=== PATIENT | female | born 1965 | race Caucasian/White ===

== ENCOUNTER 2021-03-26 14:16 | Emergency (ER) | payer MEDICARE ==
[~2021-03-26] VITALS: Ht 162.6 cm; Wt 68.1 kg
[~2021-03-26 14:16] MED LIST: (None)250 MG OR; ASPIRIN 81 LOW81 MG; BACLOFEN20 MG OR; BUPROPION100 MG PO; CLONAZEP ODT1 MG OR; CYMBALTA20 MG PO; CYMBALTA60 MG OR; DYAZIDE1 CAP OR; GABAPENTIN600 MG OR; LORTAB5 OR; LOVASTATIN10 M1 PO; ONDANSETRON4 MG PO; OXYCODONE10 M1 PO; PILOCARPINE5 MG PO; PREGABALIN25 MG; PREVACID30 M2 OR; PROTONIX20 M1 PO; RIZATRIPTAN BENZ5 M1 PO; TIZANIDINE HCL2 MG PO; XIFAXAN200 MG OR
[2021-03-26 15:38] LABS: HEMATOCRIT 32.9 % (37.0-47.0); HEMOGLOBIN 9.7 g/dl (12.0-16.0); IMMATURE GRANULOCYTES 0.4 % (0.0-5.0); MEAN CELL VOLUME 94.5 fL CALC (80.0-100.0); MEAN CORPUSCULAR HGB 27.9 pG CALC (26.0-32.0); MEAN CORPUSCULAR HGB CONC 29.5 g/dL CAL (32.0-36.0); NEUT# 3.48 thou/uL (2.00-7.15); RED BLOOD COUNT 3.48 mill/uL (4.20-5.60); RED CELL DISTRI WIDTH 18.7 % (11.5-15.5)
[2021-03-26 15:56] LABS: ALBUMIN 3.6 g/dL (3.2-5.0); ALKALINE PHOSPHATASE 112 u/l (38-126); AMYLASE 46 u/l (30-110); ANION GAP 12 (6-22 (CALC)); BUN 9 mg/dL (7-17); BUN/CREATININE RATIO 16 (12-20 (CALC)); CARBON DIOXIDE 23 mmol/l (22-30); CHLORIDE 112 mmol/l (95-108); CREATININE 0.6 mg/dL (0.5-1.0); GFR > 60 ML/MIN (>=60 (CALC)); GFR FOR AFR.AMER. > 60 ML/MIN (>=60 (CALC)); LIPASE 121 u/l (23-300); POTASSIUM 3.9 mmol/l (3.5-5.1); SGOT/AST 21 u/l (14-36); SODIUM 143 mmol/l (137-146); TOTAL PROTEIN 6.6 g/dL (6.3-8.2)
[2021-03-26 16:00] LABS: ACT PARTIAL THROMBO TIME 25.8 SECONDS (20.0-32.5); PROTHROMBIN TIME 10.2 SECONDS (9.0-12.5)
[2021-03-26 17:46] VITALS: BP 143/69
[2021-03-26 17:49] LABS: URINE BILIRUBIN - DIPSTICK NEGATIVE (NEGATIVE); URINE BLOOD DIPSTICK NEGATIVE (NEGATIVE); URINE COLOR YELLOW; URINE GLUCOSE - DIPSTICK NEGATIVE (NEGATIVE); URINE KETONE NEGATIVE (NEGATIVE); URINE LEUK ESTERASE NEGATIVE (NEGATIVE); URINE PROTEIN - DIPSTICK NEGATIVE (NEG-TRACE); URINE UROBILINOGEN - DIPSTICK 0.2 E.U./dL (0.2)
[2021-03-26 17:54] LABS: URINE NITRITE - DIPSTICK NEGATIVE (Negative)
[2021-04-02] MEDS ORDERED: LASIX 40 MG TAB40 MG PO (14:30)
[2021-04-23] MEDS ORDERED: PERCOCET1 TA4 PO ×2 (14:51→14:52)
[2021-04-24] MEDS ORDERED: CLONAZEPAM1 M1 PO (09:20)
[2021-04-24] MEDS ORDERED: RIZATRIPTAN BEN10 M1 PO (09:23)
[2021-04-24] MEDS ORDERED: DULOXETINE HCL60 MG PO (09:53)
[2021-04-24] MEDS ORDERED: TOPIRAMATE50 MG PO (09:54)
[2021-04-24] MEDS ORDERED: MELATONIN5 MG PO (10:00)
[2021-04-24] MEDS ORDERED: VITAMIN D31000 UNI1 PO (10:02)
[2021-04-24] MEDS ORDERED: ACIDOPHILUS PR100 MG PO (10:03)
[2021-04-24] MEDS ORDERED: BL IBUPROFEN200 MG PO (10:12)
[2021-04-24] MEDS ORDERED: TYLENOL325 M2 PO (10:12)
== END 2021-03-26 18:03 | disposition home or self-care (01) ==
LOC: ED 14:16
DX: K43.2 Incisional hernia without obstruction or gangrene (principal); G89.29 Other chronic pain; M79.7 Fibromyalgia; F32.9 Major depressive disorder, single episode, unspecified; F17.210 Nicotine dependence, cigarettes, uncomplicated; Z95.828 Presence of other vascular implants and grafts; Z20.822 Contact with and (suspected) exposure to COVID-19

== ENCOUNTER 2021-04-15 18:02 | Emergency (ER) | payer MEDICARE ==
[~2021-04-15] VITALS: Ht 162.6 cm; Wt 81.0 kg
[~2021-04-15 18:02] MED LIST changes: +LASIX 40 MG TAB40 MG PO
[2021-04-15] MEDS ORDERED: HYDROCO/APAP1 TA9 PO (19:59)
[2021-04-15] MEDS ORDERED: FLEXERIL5 M1 PO (20:01)
[2021-04-15] MEDS ORDERED: MEDDOSEPAK PO (20:01)
[2021-04-15 20:22] VITALS: BP 118/63
[2021-04-23] MEDS ORDERED: PERCOCET1 TA4 PO ×2 (14:51→14:52)
[2021-04-24] MEDS ORDERED: CLONAZEPAM1 M1 PO (09:20)
[2021-04-24] MEDS ORDERED: RIZATRIPTAN BEN10 M1 PO (09:23)
[2021-04-24] MEDS ORDERED: DULOXETINE HCL60 MG PO (09:53)
[2021-04-24] MEDS ORDERED: TOPIRAMATE50 MG PO (09:54)
[2021-04-24] MEDS ORDERED: MELATONIN5 MG PO (10:00)
[2021-04-24] MEDS ORDERED: VITAMIN D31000 UNI1 PO (10:02)
[2021-04-24] MEDS ORDERED: ACIDOPHILUS PR100 MG PO (10:03)
[2021-04-24] MEDS ORDERED: TYLENOL325 M2 PO (10:12)
[2021-04-24] MEDS ORDERED: BL IBUPROFEN200 MG PO (10:12)
== END 2021-04-15 20:24 | disposition home or self-care (01) ==
LOC: ED 18:02
DX: M54.5 Low back pain (principal); G89.29 Other chronic pain; F32.9 Major depressive disorder, single episode, unspecified; F17.210 Nicotine dependence, cigarettes, uncomplicated

== ENCOUNTER 2021-06-04 07:14 | Inpatient (IN) | payer MEDICARE ==
[2021-06-04] VITALS (9 sets, daily range): BP systolic 115–142; BP diastolic 59–80
[~2021-06-04] VITALS: Ht 162.6 cm; Wt 76.0 kg
[~2021-06-04 07:14] MED LIST changes: +ACIDOPHILUS PR100 MG PO; +BL IBUPROFEN200 MG PO; +CLONAZEPAM1 M1 PO; +DULOXETINE HCL60 MG PO; +FLEXERIL5 M1 PO; +HYDROCO/APAP1 TA9 PO; +MAXALT10 MG PO; +MEDDOSEPAK PO; +MELATONIN5 MG PO; -OXYCODONE10 M1 PO; +PERCOCET 10/31 COMBO PO; +PERCOCET1 TA4 PO; +PREGABALIN200 MG PO; -PREGABALIN25 MG; +RIZATRIPTAN BEN10 M1 PO; -RIZATRIPTAN BENZ5 M1 PO; +TOPIRAMATE50 MG PO; +TYLENOL325 M2 PO; +VITAMIN D31000 UNI1 PO
--- NOTE | 2021-06-04 12:06 | NUR ---
RECEIVED PATIENT AT THIS TIME FROM PACU NURSE JOY UMANA. REPORT GIVEN AT THIS TIME. PATIENT ALERT AND ORIENTED AT THIS TIME BUT STATES SHE IS HAVING SOME PAIN. PATIENT IS ALERT AND ORIENTED AND ABLE TO ANSWER QUESTIONS AT THIS TIME. PATIENT DOCTOR PODIATRIC MEDICINE DONE SEE INTERVENTIONS. PATEINT PRESENTS WITH SURGICAL DRESSING ON ABDOMINAL AREA WITH THREE LAP SITES AND LEFT SIDE INCISION THAT HAS JOSEPH (PER SURGICAL NURSE) ALL DRESSINGS ARE DRY AND INTACT. THERE IS A VISIABLE NOTED BERT DRAIN ON LEFT SIDE WITH BLOODY DRAINAGE AT THIS TIME. PATIENT STATED HER PAIN IS A 5 AT THIS TIME AND RN JOY STATED SHE WAS MEDICATED PREVIOUSLY BEFORE COMING TO FLOOR. PATIENT LUNGS ARE CLEAR AND PATIENT HAS 02 ON AT 4L N/C AT THIS TIME. PATIENT HAS UNACESSED PORT NOTED IN UPPER RIGHT CHEST WALL. CARLY DOES PRESENT WITH A #20 GAUGE IV IN LEFT FOREARM. PATEINT ALSO PRESENTS WITH 16 HUNGARIAN MARCOS CATH THAT WAS INSERTED BY SURGICAL TEAM DURING SURGERY. PATIENT WAS SET UP WITH SCD ON AT THIS TIME. PATIENT ADVISED TO CALL FOR ASSISTANCE. SIDERAILS ARE UP X 2 CALL LIGHT IS WITHIN REACH. PATIENT WILL CONTINUE TO BE MONITORED.
[2021-06-04] MEDS ORDERED: ASPIRIN81 MG PO (13:06)
--- NOTE | 2021-06-04 13:08 | NUR ---
PATIENT MEDICATED AT THIS TIME WITH PEROCET 5/325MG PO FOR PAIN LEVEL OF 3 AND WAS ALSO GIVEN SCHEDULED TORADOL 15MG IV AT THIS TIME. WILL CONTINUE TO MONITOR. SIDERAILS ARE UP CALL LIGHT WITHIN REACH.
--- NOTE | 2021-06-04 14:00 | NUR ---
PATIENT GIVEN EDUCATION ON THE USE OF AN INCENTIVE SPIROMETER AT THIS TIME. PATIENT STATED THAT SHE HAS USED ONE IN THE PAST AND DID DEMONSTRATE PROPER USE AT THIS TIME.
--- NOTE | 2021-06-04 16:00 | NUR ---
PATIENT RESTING IN BED AT THIS TIME. PATIENT'S ABDOMINAL BINDER REMOVED TO CHECK SURGERY SITES 3 LAP SITES ARE DRY AND INTACT AND LEFT SIDE INSCISIONAL DRESSING IS DRY AND INTACT. BERT DRAIN CONTINUE TO DRAIN BLOODY DRAINAGE AT THIS TIME. PATIENT STATES PAIN IS CONTROLLED CURRENTLY AND IS A "2" ON THE PAIN SCALE OF 0-10. BINDER PLACED BACK ON. PATIENT HAS BEEN ABLE TO EAT A SNACK AND HOLD WATER DOWN WITHOUT FEELING NAUSEATED OR VOMITTING AT THIS TIME. SIDERAILS ARE UP CALL LIGHT WITHIN REACH.
--- NOTE | 2021-06-04 16:53 | NUR ---
PATIENT COMPLAIN THAT PAIN IS STARTING TO COME BACK IN ABDOMINAL AREA PATIENT MEDICATED WITH OXYCODONE 5/325MG AT THIS TIME FOR A STATED PAIN LEVEL OF "3". BERT DRAIN ALSO DRAINED AT THIS TIME AND 15ML OF BLOODY DRAINAGE REMOVED AT THIS TIME. DRESSINGS ARE STILL INTACT AND BINDER INPLACE AND SIDERAILS ARE UP AND CALL LIGHT IS WITHIN REACH.
--- NOTE | 2021-06-04 17:55 | NUR ---
PATIENT UP AT BEDSIDE EATING DINNER AT THIS TIME. PATIENT BEDSIDERAILS ARE UP AND CALL LIGHT IS WITHIN REACH.
--- NOTE | 2021-06-04 18:30 | NUR ---
ASSITED PATIENT BACK DOWN IN BED AT THIS TIME. ICE/PACK GIVEN TO PATIENT AT THIS TIME FOR COMFORT ON LEFT SIDE OF ABDOMINAL WALL AREA. PATIENT STATES "THAT FEELS REALLY GOOD". PATIENT ATE 75% OF HER REGULAR DIET AT THIS TIME. AND IS NOW RESTING. SIDERAILS ARE UP CALL LIGHT WITHIN REACH.
--- NOTE | 2021-06-04 19:30 | NUR ---
PATIENT IS AWAKE, ALERT AND ORIENTED, SUPINE, C/O ABD PAIN 9/10 AT THIS TIME. RESPIRATIONS EVEN/UNLABORED, HR REG, MULTIPLE DRESSINGS TO ABD CDI AND NOT TO BE REMOVED/CHANGED UNTIL S/P DAY 2. BERT DRAIN TO LLQ DRAINING SANGUENOUS FLUID TO BULB SUCTION. MARCOS CATHETER DRAINING CLEAR YELLOW URINE TO GRAVITY. SKIN WARM AND DRY. BS+. ASSESSMENT COMPLETED AND CHARTED. BED IN LOW POSITION. CALL LIGHT WITHIN REACH.
--- NOTE | 2021-06-04 19:50 | NUR ---
RECEIVED REPORT FROM NOE UMANA.
--- NOTE | 2021-06-04 21:19 | NUR ---
PT NOW COMPLAINING OF PALPITATIONS. EDUCATIONAL COORDINATOR TO DO EKG.
--- NOTE | 2021-06-04 22:15 | NUR ---
PATIENT MEDICATED WITH DILAUDID 1MG IV FOR ABD PAIN 04/09. RESTING QUIETLY SUPINE. BED IN LOW POSITION. CALL LIGHT WITHIN REACH.
--- NOTE | 2021-06-04 23:58 | NUR ---
MIDNIGHT MEDICATIONS GIVEN. PAIN 6/10 RELIEVED TO 5/10 FROM TORADOL IV.
--- NOTE | 2021-06-05 03:55 | NUR ---
PATIENT C/O NAUSEA, ZOFRAN 4MG IV ADMINISTERED.
[2021-06-05 04:00] VITALS: BP 115/73
[2021-06-05 05:51] LABS: MEAN CELL VOLUME 95.3 fL CALC (80.0-100.0); MEAN CORPUSCULAR HGB 28.3 pG CALC (26.0-32.0); MEAN CORPUSCULAR HGB CONC 29.7 g/dL CAL (32.0-36.0); RED BLOOD COUNT 2.58 mill/uL (4.20-5.60); RED CELL DISTRI WIDTH 18.6 % (11.5-15.5)
[2021-06-05 05:53] LABS: HEMATOCRIT 24.6 % (37.0-47.0); HEMOGLOBIN 7.3 g/dl (12.0-16.0)
[2021-06-05 06:06] LABS: ANION GAP 10 (6-22 (CALC)); BUN 19 mg/dL (7-17); BUN/CREATININE RATIO 37 (12-20 (CALC)); CARBON DIOXIDE 22 mmol/l (22-30); CHLORIDE 111 mmol/l (95-108); CREATININE 0.5 mg/dL (0.5-1.0); GFR > 60 ML/MIN (>=60 (CALC)); GFR FOR AFR.AMER. > 60 ML/MIN (>=60 (CALC)); MAGNESIUM 1.7 mg/dL (1.6-2.3); SODIUM 139 mmol/l (137-146)
--- NOTE | 2021-06-05 06:46 | NUR ---
PATIENT WAS UP AND AMBULATED APPROXIMATELY 50 FEET IN THE HALLWAY WITH THIS NURSE. TOLERATED WELL. DEFINATE INCREASED PAIN FROM AMBULATING.
[2021-06-05 08:18] VITALS: BP 115/76
--- NOTE | 2021-06-05 08:18 | NUR ---
PT LAYING IN BED. A&O X4. PT C/O OF PAIN 9/10 SHARP IN DESCRIPTION. CLEAR BREATH SOUNDS UPON AUSCULTATION. ACTIVE BOWEL SOUNDS X4 QUADRANTS. ABD BINDER IN PLACE, X4 LAPAROSCOPIC INCISIONS WITH DRESSINGS CDI; OPEN INCISON TO LT FLANK WITH DRESSING CDI. DRESSING TO BE CHANGED ON POD DAY #2. BERT DRAIN IN PLACE; HEALTHY AND PATENT WITH SANGUINEOUS DRAINAGE NOTED; OUTPUT THIS AM 7CC. MARCOS CATHTER DRAINING VIA GRAVITY WITH CLEAR YELLOW URINE NOTED IN COLLECTION BAG. TRACE EDEMA NOTED TO BLE, WEAK PEDAL PULSES. BILATERAL SCDS IN PLACE. #20G LFA HEALTHY AND PATENT INFUSING IVF PER MAR ORDER. NO OTHER NEEDS AT THIS TIME. ASSESSMENT COMPLETED. DISCUSSED POC. CALL LIGHT WITHIN REACH.
--- NOTE | 2021-06-05 10:53 | NUR ---
DR SAEZ AND Jean-Paul MANZANO MOTION PICTURE PROJECTIONIST APPRENTICE AT BEDSIDE DISCUSSING POC
--- NOTE | 2021-06-05 11:18 | NUR ---
Patient participated with PT intervention today. Patient carried out log rolling supine to sitting bed mobility ADLs and sit to stand push off ADLs with 1 to 3 reps with constant verbal and tactile cuing to help decrease trick movements and fall risks (patient required significant tactile cuing to help carry out functional weight bearing ADLs). Patient also did B LE seated AROM exercises doing hip flexion, hip adduction, hip abduction, hamstring curls, knee extension, and ankle pumps for 10 reps x 2 sets with occasional verbal and tactile cuing to help decrease trick movements and fall risks as patient prepares for discharge from hospital and go home.
--- NOTE | 2021-06-05 11:45 | NUR ---
PATIENTS MARCOS REMOVED 9CC OF SALINE REMOVED FROM BALLOON. UPON REMOVAL MARCOS/ BALLOON INTACT. 450 CC OF CLEAR YELLOW URINE EMPTIED PRIOR TO REMOVAL. PATIENT TOLERATED WELL. REPORTS PAIN 05/10, SCHEDULED TORADOL GIVEN IVP. NO OTHER NEEDS AT THIS TIME. HELPED REPOSTION PATIENT IN BED. CALL LIGHT WITHIN REACH.
--- NOTE | 2021-06-05 12:59 | NUR ---
ORDER OBTAINED TO CHANGE PILOCARMINE ORDER TO [address] BELLE- PT REPORTS THAT WAS "HER DOSAGE BEFORE". ORDER WRITTEN AND FAXED TO PHARMACY.
--- NOTE | 2021-06-05 15:19 | NUR ---
PT AMBULATING HALLWAY WITH Susana MERAZ RN AT SIDE. PT TOLERATING WELL.
[2021-06-05 16:00] VITALS: BP 104/66
--- NOTE | 2021-06-05 16:00 | NUR ---
PT RESTING IN BED. PT RATES PAIN 8-10, PERCOCET WAS GIVEN PO. NO OTHER NEEDS AT THIS TIME. CALL LIGHT LEFT WITHIN REACH.
--- NOTE | 2021-06-05 18:53 | NUR ---
REPORT RECEIVED BY Wendy FLORENTINO RN
--- NOTE | 2021-06-05 19:00 | NUR ---
PATIENT ALERT AND ORIENTED X3. REGULAR HEART BEAT. ACTIVE BOWEL SOUNDS,LAS BOM 10/4 NO PROBLEM ON URINATION. BILATERAL LOWER TRACE EDEMA. #20 LFA INFUSING NORMAL SALINE AT 100ML/HR.PATIENT HAS ABDOMINAL BINDER IN PLACE, WITH BERT DRAIN MINIMAL DRAINAGE. PATIENT AMBULATED IN ROOM, TOLERATED WELL. SALINE LOCK. CARE PLAN REVIEWED, CALL LIGHT AND BEDSIDE TABLE WITHIN REACH.
[2021-06-05 20:00] VITALS: BP 106/61
--- NOTE | 2021-06-05 20:16 | NUR ---
PATIENT COMPLAIONIGN OF MILD PAIN, 3/10 ADMINISTERED PER EMAR.
--- NOTE | 2021-06-05 20:50 | NUR ---
PATIENT STATES SHE HAS HAD A FEVER ALL DAY AND NO ONE HAS DONE ANYTHING ABOUT IT. EXPLAINED TO PATIENT SHE IS GETTING ACETAMINIPHEN ALREADY FOR PAIN, PATIENT STATES EVERYTIME SHE SAYS SHE HAS A FEVER, HER FEVER "MAGICALLY" DISAPPEARS WHEN WE ARE IN THERE. SHE SAID SHE WOULD HAVE A FEVER SHOW UP ON THE THERMOMETER IF WE STOPPED GIVING HER THE PERCOCET. ASKED PATIENT IF SHE WOULD LIKE TO STOP RECEIVING PERCOCET AND SHE SAID "NO" AND TO STOP YELLING ADVISED PATIENT WRITTER WAS NOT YELLING, BUT SIMPLY TRYING TO UNDERSTAND, PATIENT COVERED HER HEAD AND DID NOT ANSWER ANY FURTHER QUESTIONS. PATIENT IS ALSO EXPERIENCING UNRIELIEVD PAIN INCREASING TO A 9/10 NOW HER HEAD AND BACK HURT TOO. MEEDICATED PER EMAR.
--- NOTE | 2021-06-05 21:37 | NUR ---
PATIENT RATES [AIN A 03/09 AT THIS TIME, RESTINF COMDFRTABLY WATCHING TV. MEDICATED PER EMAR, PT DECLINED MELATONIN, CLONAZAPAM, SATATES SHE TAKLES THEM LATER AT HOME AND SH WILL LET ME KNOW THE TIME SHE WANTS THEM. DECLINED PILOCARPINE AT THIS TIME, STATES SHE TAKES IT PRN AT HOME. PT REMOVED ABDOMINAL BINDER AND WILL CALL WHEN SHE IS READY TO BE ASSITED WITH ITS RE APPLICATION.
[2021-06-06] VITALS (12 sets, daily range): BP systolic 108–153; BP diastolic 54–81
--- NOTE | 2021-06-06 00:04 | NUR ---
PATIENT REQUESTING PRIOR HELD MEDIATIONS. PATIENT UP TO THE RESTROOM AT THIS TIME ASSITED BY WRITTER. PATIENT AMBULATED WITH ASSIT OF ONE, STEADY GAIT, ADAPTED EXIXTING TOILET WITH RAISED SEAT FOR ADDED SUPPORT. 30ML DRAINED FROM BERT DRAIN AT THIS TIME.
--- NOTE | 2021-06-06 05:36 | NUR ---
PATIENT WATCHING, NO APAPRENT DISTRESS, DENIES ANY CURRENT NEEDS. WOULD LIKE TO WALK AFTER PAIN MEDICATION THIS AM. CALL LIGHT AND BEDSIDE TABLE WITHIN REACH.
--- NOTE | 2021-06-06 06:15 | NUR ---
PATIENT UP TO THE RESTROOM AT THIS TIME. MEDICATED PER EMAR. PATIENT STATES HER PAIN IS "ALOT" AT THE MOMENT. RATES IT A 9/10. PATIENT UP TO WALK THE HALLS WITH WRITTER.
--- NOTE | 2021-06-06 07:56 | NUR ---
PT SLEEPING IN BED. RESP EVEN AND UNLABORED. NO DISTRESS NOTED. CALL LIGHT WITHIN REACH.
[2021-06-06 09:21] LABS: MEAN CORPUSCULAR HGB 28.6 pG CALC (26.0-32.0); MEAN CORPUSCULAR HGB CONC 29.5 g/dL CAL (32.0-36.0); RED BLOOD COUNT 1.99 mill/uL (4.20-5.60)
[2021-06-06 09:30] LABS: HEMATOCRIT 19.3 % (37.0-47.0); HEMOGLOBIN 5.7 g/dl (12.0-16.0)
--- NOTE | 2021-06-06 09:33 | NUR ---
Jean-Paul MANZANO APRN NOTIFIED OF CRITICAL H&H RESULTS.
--- NOTE | 2021-06-06 10:23 | NUR ---
#20g rac initiated. healthy and with good blood retunrn. radiology notified.
--- NOTE | 2021-06-06 10:30 | NUR ---
pt transported to CT via wc in stable condition.
--- NOTE | 2021-06-06 11:15 | NUR ---
dr miller at bedside discussing poc
--- NOTE | 2021-06-06 11:16 | NUR ---
dr don and mariya hayden senior application software engineer at bedside discussing poc
--- NOTE | 2021-06-06 11:36 | NUR ---
VERBAL ORDER OBTAINED TO REMOVED BERT DRAIN BY DR COKER
--- NOTE | 2021-06-06 12:00 | NUR ---
PT RESTING IN BED. CALL LIGHT WITHIN REACH. NO DISTRESS NOTED.
--- NOTE | 2021-06-06 12:15 | NUR ---
BERT DRAIN REMOVED BY Ron BRADLEY LPN PER VERBAL ORDERS OF DR COKER. PT PREMEDICATED WITH PAIN MEDICATION AT 11:30 AM. DRESSINGS ALSO CHANGED PER ORDERS. PT TOLERATED WELL. NO OTHER NEEDS AT THIS TIME. CALL LIGHT WITHIN REACH.
--- NOTE | 2021-06-06 13:27 | NUR ---
UNIT OF BLOOD VERIFIED WITH Susana MERAZ RN. INITIATED AT THIS TIME. PT EDUCATED WITH S/S OF RX PRIOR TO THE INITIATION OF TRANSFUSION. TRANSFUSION INITIATED AT 75 ML/HR FOR THE FIRST 15 MIN PT VERBALIZED UNDERSTANDING. THIS USER SUPPORT ANALYST SUPERVISOR AND Susana MERAZ RN REMAIN AT SIDE
--- NOTE | 2021-06-06 14:24 | NUR ---
RU CHEST PORT ACCESSED BY THIS LOCOMOTIVE FIRER/FIREMAN X1 ATTEMPT USING STERILE TECHNIQUE. FLUSHES WITH EASE AND HAS GOOD BLOOD RETURN. VERBAL ORDER OBTAINED FOR PORTABLE CXR FOR VERIFACTION OF PLACEMENT. PT TOLERATED WELL.
--- NOTE | 2021-06-06 15:56 | NUR ---
PT RESTING IN BED TALKING ON PHONE. BLOOD IS INFUSING WITH NO SIGNS OF ALLERIC REACTION. PT SHOWS NO SIGNS OF DISTRESS. CALL LIGHT WITHIN REACH. ALL PERSONAL ITEMS/ DRINKS WITHIN REACH.
--- NOTE | 2021-06-06 16:57 | NUR ---
PT AGGITATED STATING "NO ONE IS DOING ANYTHING ABOUT MY PAIN, NO ONE LISTENS TO ME" PT HAS BEEN MEDICATED WITH PAIN MEDICATION . VERBAL QUES FOR RELAXATION GIVEN. PT ALSO AGITATED THAT "SHE IS NOT ABLE TO SMOKE", EDUCATED ON POLICY. PT REASSURED MEAURES WERE BEING TAKEN TO CONTROL PAIN MUCH POSSIBLE; ALTHOUGH DUE TO HER CHRONIC PAIN AND BEING POST OP PT EDUCATED THAT SHE WAS NOT GOING TO BE RELIEVED 100% FROM PAIN, BUT PAIN WOULD BE IMPROVING DAILY. PT ACCEPTING VERBAL QUES. CALMER AT THE END OF CONVERSATION. NO OTHER NEEDS AT THIS TIME.
--- NOTE | 2021-06-06 17:53 | NUR ---
D JOSE JUAN NOTIFIED OF LOW GRADE TEMP OF 99.0F. ORDERS FOR TYLENOL OBTAINED & ORDERS TO CONTINUE WITH SECOND UNIT OF BLOOD OBTAINED.
--- NOTE | 2021-06-06 18:15 | NUR ---
SECOND UNIT OF BLOOD INITIATED AT THIS TIME PER PHYSICIAN ORDERS. BLOOD VERIFIED WITH Susana MERAZ RN. PT EDUCATED ON S/S OF RX. THIS AERONAUTICAL ENGINEERING TECHNOLOGIST AND Susana GUILLERMO RN REMAIN AT BEDSIDE
--- NOTE | 2021-06-06 18:30 | NUR ---
PT TOLERATING BLOOD TRANSFUSION WELL. INCREASED RATE TO 125 ML/HR. NO S/S OF RX. NO OTHER NEEDS REPORTED AT THIS TIME.
--- NOTE | 2021-06-06 20:00 | NUR ---
PATIENT IS AWAKE, RESTING IN BED, GROGGY, NO COMPLAINTS AT THIS TIME. PRBC'S INFUSING AT THIS TIME. VSS. AFEBRILE. ASSESSMENT COMPLETED AND CHARTED. BED IN LOW POSITION. CALL LIGHT WITHIN REACH.
--- NOTE | 2021-06-06 20:40 | NUR ---
EVENING MEDICATIONS GIVEN. PRN PAIN MEDICATIONS GIVEN FOR ABD PAIN WITH POSITIVE EFFECT.
[2021-06-06 22:53] LABS: HEMATOCRIT 25.1 % (37.0-47.0)
[2021-06-06 22:56] LABS: HEMOGLOBIN 7.8 g/dl (12.0-16.0)
--- NOTE | 2021-06-07 | NUR ---
PATIENT MEDICATED FOR PAIN WITH SOME POSITIVE EFFECT. NO ACUTE DISTRESS OBSERVED. IVF INFUSING.
--- NOTE | 2021-06-07 02:45 | NUR ---
PRN PAIN MEDICATION GIVEN WITH POSITIVE EFFECT.
[2021-06-07 03:44] VITALS: BP 126/77
--- NOTE | 2021-06-07 05:12 | NUR ---
DILAUDID 1MG IV GIVEN FOR HEADACHE AND ABD PAIN.
[2021-06-07 05:45] LABS: HEMATOCRIT 24.7 % (37.0-47.0); HEMOGLOBIN 7.8 g/dl (12.0-16.0); MEAN CELL VOLUME 94.3 fL CALC (80.0-100.0); MEAN CORPUSCULAR HGB 29.8 pG CALC (26.0-32.0); MEAN CORPUSCULAR HGB CONC 31.6 g/dL CAL (32.0-36.0); RED BLOOD COUNT 2.62 mill/uL (4.20-5.60); RED CELL DISTRI WIDTH 16.6 % (11.5-15.5)
[2021-06-07 06:14] LABS: ANION GAP 8 (6-22 (CALC)); BUN 10 mg/dL (7-17); BUN/CREATININE RATIO 19 (12-20 (CALC)); CARBON DIOXIDE 26 mmol/l (22-30); CHLORIDE 109 mmol/l (95-108); CREATININE 0.5 mg/dL (0.5-1.0); GFR > 60 ML/MIN (>=60 (CALC)); GFR FOR AFR.AMER. > 60 ML/MIN (>=60 (CALC)); MAGNESIUM 1.8 mg/dL (1.6-2.3); POTASSIUM 3.7 mmol/l (3.5-5.1); SODIUM 139 mmol/l (137-146)
--- NOTE | 2021-06-07 07:00 | NUR ---
RECIEVED REPORT FROM LYNDSAY RANKIN
--- NOTE | 2021-06-07 07:17 | NUR ---
PT UP AMBULATING WITH STEADY GAIT WITH AID AT SIDE
[2021-06-07 07:55] VITALS: BP 139/86
--- NOTE | 2021-06-07 07:55 | NUR ---
PT SITTING UP IN RECYLINER. PT IS A/O X3. ASSESSMENT AND VITALS COMPLETED. BP 139/86, HR 77, O2 96% ON ROOM AIR. RSPIRATIONS ARE EVEN AND UNLABORED WITH NO DISTRESS NOTED. LUNG SOUNDS ARE CLEAR. HEART RHYTHM NORMAL. BOWEL SOUNDS ARE ACTIVE. #20G LFA INFUSING WITH IVF PER ORDER, SITE APPEARS HEALTHY AND PATENT. RIGHT CHEST PORT OCCULDED. SKIN INTACT. DRESSINGS TO ABD AND LEFT FLANK REMAINS CDI WITH ABD BINDER. PT COMPLAINS OF 8/10 PAIN, PERCOCET TO BE ADMINISTERED. PT DENIES OF ANY ADDITIONAL NEEDS AT THIS TIME. ALL SAFETY PRECAUTIONS ARE IN PLACE WITH CALL LIGHT IN REACH. WILL CONTINUE TO MONITOR.
--- NOTE | 2021-06-07 10:11 | NUR ---
PHYSICAL THERAPY AT BEDSIDE. PT REQUESTING PAIN MEDICATION. PT INFORMED OF PERCOCET ADMINISTERED AND TORADOL DUE SOON.INFORMED PT OF BEING MEDICATED WHEN BACK IN BED. PT VERBALZIED UNDERSTANDING
--- NOTE | 2021-06-07 10:16 | NUR ---
PT AMBULATING HALLS WITH PHYSICAL THERAPY
--- NOTE | 2021-06-07 10:36 | NUR ---
DR BELLE AND TODD,ANRP AT BEDSIDE
--- NOTE | 2021-06-07 11:00 | NUR ---
NOE RN AT BEDSIDE TO ASSITED WITH OCCULED PORT. HEPARIN ORDERS OBTAINED. RIGHT CHEST PORT FLUSHED, SITE APPEARS HEALTHY AND PATENT. HEPARIN ADMINISTERED.
--- NOTE | 2021-06-07 11:55 | NUR ---
PT SITTING UP ON SIDE OF BED EATING LUNCH. RESPIRATIONS ARE EVEN AND UNLABORED WITH NO DISTRESS NOTED. #20G LFA FLUSHED, ORDERS FOR DC OF IV FLUIDS. DRESSING REMAINS CDI. PT STATES PAIN IN NOW 8/10 AFTER DILAUDID. ALL SAFETY PRECAUTIONS ARE IN PLACE WITH CALL LIGHT IN REACH. WILL CONTINUE TO MONITOR
--- NOTE | 2021-06-07 13:10 | NUR ---
PT AGGITATED ASKING WHY SHE CANT GO HOME ON DILAUDID PO. PT THEN REQUEST FOR OXYCODONE TO BE INCREASED TO 10, AMOUNT SHE TAKES AT HOME. DR BELLE NOTIFIED.
--- NOTE | 2021-06-07 13:36 | NUR ---
ORDERS FOR PERCOCET 10 OBTAINED. PROVIDED TO PT. PT TOLERATED WELL.
--- NOTE | 2021-06-07 14:05 | NUR ---
Patient participated with PT intervention today. Patient carried out log rolling supine to sitting bed mobility ADLs and sit to stand push off transfer ADLs with 1 to 2 attempts with occasional verbal cuing and CGA x 1 to help decrease trick movements and fall risks. Patient did gait training with use of SBQC on R UE covering approximately 25 feet x 3 to 4 reps on level surfaces with CGA x 1. Patient also did B LE AROM exercises doing hip flexion, hip adduction, hip abduction, hamstring curls, knee extension, and ankle pumps for 15 reps x 2 sets to help reinforce increased functional weight bearing ADLs as patient works on being discharged from hospital.
[2021-06-07 14:49] VITALS: BP 117/77
--- NOTE | 2021-06-07 16:12 | NUR ---
DRESSING TO LLQ CHANGED. DRESSING TO SURGICAL LIGHT REMAINS CDI. PT TOLERATED WELL.
--- NOTE | 2021-06-07 16:23 | NUR ---
PT RESTING IN SEMI FOLWERS POSITION. RESPIRATIONS ARE EVEN AND UNLABORED WITH NO DISTRESS NOTED. #20G LFA REMAINS IN PLACE. RIGHT CHEST PORT NOTED. SURGICAL DRESSINGS REMAINS CDI. PT COMPLAINS OF 8/10 PAIN. PT TO BE MEDICATED WITH PERCOCET WHEN AVAILABLE. PT DENIES OF ANY ADDITIONAL PAINS OR DISCOMFORTS. ALL SAFTEY PRECAUTIONS ARE IN PLACE WITH CALL LIGHT IN REACH. WILL CONTINUE TO MONITOR.
--- NOTE | 2021-06-07 19:41 | NUR ---
ENTERED ROOM PT STANDING AT BEDSIDE PUTTING DRESSING ON HER SALAD, NO SIGNS OF DISTRESS NOTED, RESP EVEN AND UNLABORED ON ROOM AIR, PT PUPILS PINPOINT AND SLIGHTLY SLURRED, PT STATES SHE IS STILL HAVING PAIN. DISCUSSED OTHER ALTERNATIVES TO ALLEVIATE PAIN, DISCUSSED THE USE OF THE ABDOMINAL BINDER WHILE OUT OF BED, PT STATES SHE JUST GOT OUT OF BED. ASSISTED PT TO BSC, PT AMBULATED WITH SLOW STEADY GAIT. DRESSINGS TO ABD CDI, PT CONCERNED OF THE SWELLING, INFORMED PT THAT SWELLING IS NORMAL. DISCUSSED POC, PT AMBULATING IN ROOM, ASSESSMENT COMPLETED. CALL LIGHT IN REACH,CONTINUE TO MONITOR.
[2021-06-07 20:00] VITALS: BP 157/93
--- NOTE | 2021-06-07 20:40 | NUR ---
PT SITTING ON SIDE OF BED, MEDICATED PER OCT, PT REQUESTING THAT KLONOPIN AND MELATONIN BE GIVEN CLOSER TO 2200, ASSISTED PT WITH PLACING ABDOMINAL BINDER. PT C/O PAIN 06/09, MEDICATED FOR PAIN, CALL LIGHT IN REACH,CONTINUE TO MONITOR.
--- NOTE | 2021-06-08 00:10 | NUR ---
PT RESTING IN BED, NO SIGNS OF DISTRESS NOTED, RESP EVEN AND UNLABORED. MEDICATED PER MAR, CALL LIGHT IN REACH,CONTINUE TO MONITOR.
[2021-06-08 04:00] VITALS: BP 133/83
[2021-06-08 05:33] LABS: HEMATOCRIT 25.3 % (37.0-47.0); HEMOGLOBIN 7.8 g/dl (12.0-16.0); MEAN CELL VOLUME 95.8 fL CALC (80.0-100.0); MEAN CORPUSCULAR HGB 29.5 pG CALC (26.0-32.0); MEAN CORPUSCULAR HGB CONC 30.8 g/dL CAL (32.0-36.0); RED BLOOD COUNT 2.64 mill/uL (4.20-5.60)
[2021-06-08 05:50] LABS: ANION GAP 9 (6-22 (CALC)); BUN 11 mg/dL (7-17); BUN/CREATININE RATIO 19 (12-20 (CALC)); CARBON DIOXIDE 27 mmol/l (22-30); CHLORIDE 110 mmol/l (95-108); CREATININE 0.6 mg/dL (0.5-1.0); GFR > 60 ML/MIN (>=60 (CALC)); GFR FOR AFR.AMER. > 60 ML/MIN (>=60 (CALC)); POTASSIUM 3.8 mmol/l (3.5-5.1); SODIUM 143 mmol/l (137-146)
--- NOTE | 2021-06-08 06:25 | NUR ---
PT SITTING ON SIDE OF BED, MEDICATED FOR PAIN AND COFFEE PROVIDED, NO SIGNS OF DISTRESS NOTED, RESP EVEN AND UNLABORED. CALL LIGHT IN REACH,CONTINUE TO MONITOR.
[2021-06-08 07:15] VITALS: BP 132/80
--- NOTE | 2021-06-08 07:15 | NUR ---
PATIENT LAYING IN BED AT THIS TIME ALERT AND ORIENTED X 3. PATIENT STATING SHE WANTS TO GO HOME TODAY. POLYMER CHEMIST DONE AT THIS TIME SEE INTERVENTIONS. PATIENT STATES THAT HER PAIN IS 0-1 AT THIS TIME. PATIENT DRESSING ON ABDOMINAL WALL ARE DRY AND INTACT AT THIS TIME. LUNG MADRIGAL ARE CLEAR AND PATIENT STATED SHE HAD A BOWEL MOVEMENT X 2 YESTERDAY. SIDERAILS ARE UP CALL LIGHT WITHIN REACH.
--- NOTE | 2021-06-08 09:04 | NUR ---
ROUNDING ON RACIEL AT THIS TIME. PATIENT STATED TO ME THAT WHEN SHE GETS HOME SHE IS GOING TO TAKE "MY OWN PAIN MEDICATION OXYCOTIN 10MG AND I TAKE 2 EVERY 2-4 HOURS" PATIENT ALSO STATED THAT SHE WOULD LIKE FOR ME TO GIVE HER INJECTABLE DILAUDID BEFORE SHE LEAVES. PATIENT EDUCATED ON THE USE OF DILAUDID AND PROPER USE OF PAIN MEDICATIONS. PATIENT STATED "I USE THEM I WANT AND I THINK MY PAIN MANAGENT IS AN "IDIOT"". PATIENT ADVISED I WOULD SPEAK TO ATTENDING PHYSICIAN WHEN HE COMES IN.
--- NOTE | 2021-06-08 10:16 | NUR ---
PATIENT MEDICATED AT THIS TIME WITH 10/325 OXYCOTIN PO FOR PAIN OF 5 AT THIS TIME. PATIENT D/C AND VERBALIZES D/C INSTRUSTIONS AT THIS TIME. PATIENT ADVISED TO CALL DR. ALCALA'S OFFICE FOR FOLLOW UP APPOINTMENT ON Thursday.
--- NOTE | 2021-06-08 11:06 | NUR ---
Discharge instructions given. Patient verbalizes understanding of same. Discharged in stable condition via Wheelchair to Home with family. All belongings sent with pt.
[2021-06-20] MEDS ORDERED: PERCOCET 10/31 COMBO PO (12:37)
== END 2021-06-08 11:05 | disposition home or self-care (01) | DRG 354 ==
LOC: ORM 07:14 → MS2 12:06
PROVIDERS: Internal Medicine; Nurse Practitioner; ADMIT Surgery; ATTEND Hospitalist
PROC: 0WUF4JZ Supplement Abdominal Wall with Synthetic Substitute, Percutaneous Endoscopic Approach (ICD-10-PCS; principal; 2021-06-04)
PROC: 0WQF0ZZ Repair Abdominal Wall, Open Approach (ICD-10-PCS; 2021-06-04)
PROC: 3E02340 Introduction of Influenza Vaccine into Muscle, Percutaneous Approach (ICD-10-PCS; 2021-06-05)
PROC: 3E0234Z Introduction of Serum, Toxoid and Vaccine into Muscle, Percutaneous Approach (ICD-10-PCS; 2021-06-05)
PROC: 30233N1 Transfusion of Nonautologous Red Blood Cells into Peripheral Vein, Percutaneous Approach (ICD-10-PCS; 2021-06-06)
PROC: 30233N1 Transfusion of Nonautologous Red Blood Cells into Peripheral Vein, Percutaneous Approach (ICD-10-PCS; 2021-06-06)
DX: K43.2 Incisional hernia without obstruction or gangrene (principal); D62 Acute posthemorrhagic anemia; E78.5 Hyperlipidemia, unspecified; K21.9 Gastro-esophageal reflux disease without esophagitis; F41.9 Anxiety disorder, unspecified; F32.A Depression, unspecified; M54.9 Dorsalgia, unspecified; M79.7 Fibromyalgia; G89.29 Other chronic pain; F17.210 Nicotine dependence, cigarettes, uncomplicated; Z23 Encounter for immunization; G43.909 Migraine, unspecified, not intractable, without status migrainosus; E78.00 Pure hypercholesterolemia, unspecified; I10 Essential (primary) hypertension; R60.0 Localized edema; Z87.19 Personal history of other diseases of the digestive system; Z98.890 Other specified postprocedural states; Z86.14 Personal history of Methicillin resistant Staphylococcus aureus infection; Z86.2 Personal history of diseases of the blood and blood-forming organs and certain disorders involving the immune mechanism; Z01.818 Encounter for other preprocedural examination; Z11.52 Encounter for screening for COVID-19
CPT/HCPCS: C1781; C9290; J0131; J1650; J1756; J2710; P9016; Q9967

== ENCOUNTER 2021-06-25 14:09 | Emergency (ER) | payer MEDICARE ==
[~2021-06-25] VITALS: Ht 162.6 cm; Wt 82.0 kg
[~2021-06-25 14:09] MED LIST changes: +ASPIRIN81 MG PO
[2021-06-25 16:10] LABS: HEMATOCRIT 33.7 % (37.0-47.0); HEMOGLOBIN 10.6 g/dl (12.0-16.0); IMMATURE GRANULOCYTES 0.2 % (0.0-5.0); MEAN CORPUSCULAR HGB 30.2 pG CALC (26.0-32.0); MEAN CORPUSCULAR HGB CONC 31.5 g/dL CAL (32.0-36.0); NEUT# 2.93 thou/uL (2.00-7.15); RED BLOOD COUNT 3.51 mill/uL (4.20-5.60); RED CELL DISTRI WIDTH 17.5 % (11.5-15.5)
[2021-06-25 16:32] LABS: ALBUMIN 3.8 g/dL (3.2-5.0); ALKALINE PHOSPHATASE 100 u/l (38-126); AMYLASE 61 u/l (30-110); ANION GAP 11 (6-22 (CALC)); BUN 9 mg/dL (7-17); BUN/CREATININE RATIO 16 (12-20 (CALC)); CARBON DIOXIDE 25 mmol/l (22-30); CHLORIDE 108 mmol/l (95-108); CREATININE 0.6 mg/dL (0.5-1.0); GFR > 60 ML/MIN (>=60 (CALC)); GFR FOR AFR.AMER. > 60 ML/MIN (>=60 (CALC)); LIPASE 76 u/l (23-300); POTASSIUM 3.4 mmol/l (3.5-5.1); SGOT/AST 18 u/l (14-36); SODIUM 141 mmol/l (137-146); TOTAL PROTEIN 7.1 g/dL (6.3-8.2)
[2021-06-25 16:33] LABS: BILIRUBIN, TOTAL 0.3 mg/dL (0.0-1.4)
[2021-06-25] MEDS ORDERED: ZPAK PO (17:38)
[2021-06-25] MEDS ORDERED: ULTRAM50 M1 PO (17:38)
[2021-06-25 18:11] VITALS: BP 129/71
== END 2021-06-25 19:33 | disposition home or self-care (01) ==
LOC: ED 14:09
PROVIDERS: Emergency Medicine
DX: G89.18 Other acute postprocedural pain (principal); J18.9 Pneumonia, unspecified organism; F32.A Depression, unspecified; M79.7 Fibromyalgia; F17.200 Nicotine dependence, unspecified, uncomplicated; Z98.890 Other specified postprocedural states
CPT/HCPCS: Q9967

== ENCOUNTER 2021-09-12 13:49 | Emergency (ER) | payer MEDICARE ==
[~2021-09-12] VITALS: Ht 162.6 cm; Wt 73.0 kg
[~2021-09-12 13:49] MED LIST changes: +ULTRAM50 M1 PO; +ZPAK PO
[2021-09-12 15:03] LABS: IMMATURE GRANULOCYTES 0.7 % (0.0-5.0); MEAN CELL VOLUME 102.4 fL CALC (80.0-100.0); MEAN CORPUSCULAR HGB 31.7 pG CALC (26.0-32.0); NEUT# 4.01 thou/uL (2.00-7.15); RED BLOOD COUNT 2.9 mill/uL (4.20-5.60); RED CELL DISTRI WIDTH 15.4 % (11.5-15.5)
[2021-09-12 15:16] LABS: HEMATOCRIT 29.7 % (37.0-47.0); HEMOGLOBIN 9.2 g/dl (12.0-16.0)
[2021-09-12 15:30] LABS: ALKALINE PHOSPHATASE 93 u/l (38-126); ANION GAP 8 (6-22 (CALC)); BILIRUBIN, TOTAL 0.3 mg/dL (0.0-1.4); BUN 12 mg/dL (7-17); BUN/CREATININE RATIO 23 (12-20 (CALC)); CARBON DIOXIDE 29 mmol/l (22-30); CHLORIDE 105 mmol/l (95-108); CREATININE 0.5 mg/dL (0.5-1.0); GFR > 60 ML/MIN (>=60 (CALC)); GFR FOR AFR.AMER. > 60 ML/MIN (>=60 (CALC)); POTASSIUM 3.1 mmol/l (3.5-5.1); SGOT/AST 17 u/l (14-36); SODIUM 139 mmol/l (137-146); TOTAL PROTEIN 6.1 g/dL (6.3-8.2)
[2021-09-12 17:57] LABS: URINE BILIRUBIN - DIPSTICK NEGATIVE (NEGATIVE); URINE BLOOD DIPSTICK NEGATIVE (NEGATIVE); URINE COLOR YELLOW; URINE GLUCOSE - DIPSTICK NEGATIVE (NEGATIVE); URINE KETONE NEGATIVE (NEGATIVE); URINE LEUK ESTERASE NEGATIVE (NEGATIVE); URINE PROTEIN - DIPSTICK NEGATIVE (NEG-TRACE); URINE SPECIFIC GRAVITY <=1.005; URINE UROBILINOGEN - DIPSTICK 0.2 E.U./dL (0.2)
[2021-09-12 17:59] LABS: URINE NITRITE - DIPSTICK POSITIVE (Negative)
[2021-09-12 18:11] LABS: URINE BACTERIA MANY hpf; URINE RBC 0-2 RBC/hpf (0-5); URINE SQUAMOUS EPITHELIAL CELL FEW EPI/hpf (0-FEW); URINE WBC 0-2 WBC/hpf (0-5)
[2021-09-12] MEDS ORDERED: CYCLOBENZAPRINE10 MG PO (18:29)
[2021-09-12] MEDS ORDERED: LORTAB 1010 MG PO (18:29)
[2021-09-12 19:14] VITALS: BP 137/67
== END 2021-09-12 19:20 | disposition home or self-care (01) ==
LOC: ED 13:49
PROVIDERS: Emergency Medicine
DX: R42 Dizziness and giddiness (principal); S23.3XXA Sprain of ligaments of thoracic spine, initial encounter; S33.5XXA Sprain of ligaments of lumbar spine, initial encounter; F32.A Depression, unspecified; F17.200 Nicotine dependence, unspecified, uncomplicated; W19.XXXA Unspecified fall, initial encounter; Z98.890 Other specified postprocedural states

== ENCOUNTER 2021-10-09 13:07 | Emergency (ER) | payer MEDICARE ==
[~2021-10-09] VITALS: Ht 162.6 cm; Wt 64.0 kg
[~2021-10-09 13:07] MED LIST changes: +CYCLOBENZAPRINE10 MG PO; +LORTAB 1010 MG PO
[2021-10-09 13:49] LABS: HEMATOCRIT 35.7 % (37.0-47.0); IMMATURE GRANULOCYTES 0.2 % (0.0-5.0); MEAN CELL VOLUME 104.4 fL CALC (80.0-100.0); MEAN CORPUSCULAR HGB 32.2 pG CALC (26.0-32.0); MEAN CORPUSCULAR HGB CONC 30.8 g/dL CAL (32.0-36.0); NEUT# 4.75 thou/uL (2.00-7.15); RED BLOOD COUNT 3.42 mill/uL (4.20-5.60); RED CELL DISTRI WIDTH 15.5 % (11.5-15.5)
[2021-10-09 14:00] LABS: BUN 10 mg/dL (7-17); BUN/CREATININE RATIO 17 (12-20 (CALC)); CHLORIDE 107 mmol/l (95-108); CREATININE 0.6 mg/dL (0.5-1.0); GFR > 60 ML/MIN (>=60 (CALC)); GFR FOR AFR.AMER. > 60 ML/MIN (>=60 (CALC)); SODIUM 139 mmol/l (137-146)
[2021-10-09 14:01] LABS: ANION GAP 14 (6-22 (CALC)); CARBON DIOXIDE 22 mmol/l (22-30); POTASSIUM 3.9 mmol/l (3.5-5.1)
[2021-10-09] MEDS ORDERED: PERCOCET1 TA4 PO (14:01)
[2021-10-09] MEDS ORDERED: MORPHINE SULFAT30 M1 PO (14:02)
[2021-10-09 16:30] VITALS: BP 131/59
== END 2021-10-09 16:30 | disposition home or self-care (01) ==
LOC: ED 13:07
PROVIDERS: Family Medicine
DX: M54.6 Pain in thoracic spine (principal); M54.50 Low back pain, unspecified; F32.A Depression, unspecified; M79.7 Fibromyalgia; F17.200 Nicotine dependence, unspecified, uncomplicated; W07.XXXA Fall from chair, initial encounter; Y92.009 Unspecified place in unspecified non-institutional (private) residence as the place of occurrence of the external cause

== ENCOUNTER 2022-04-07 16:11 | Emergency (ER) | payer MEDICARE ==
[~2022-04-07] VITALS: Ht 162.6 cm; Wt 81.8 kg
[~2022-04-07 16:11] MED LIST changes: +MORPHINE SULFAT30 M1 PO
[2022-04-07 19:40] VITALS: BP 175/86
[2022-04-07 19:47] VITALS: BP 165/81
[2022-04-07] MEDS ORDERED: NAPROXEN500 MG PO (20:15)
[2022-04-07] MEDS ORDERED: CYCLOBENZAPRINE10 MG PO (20:15)
[2022-04-07 20:58] VITALS: BP 165/81
== END 2022-04-07 20:59 | disposition home or self-care (01) ==
LOC: ED 16:11 → LWOBS 19:36 → ED 19:36
DX: G43.909 Migraine, unspecified, not intractable, without status migrainosus (principal); F32.A Depression, unspecified; F17.210 Nicotine dependence, cigarettes, uncomplicated

== ENCOUNTER 2022-05-22 18:48 | Emergency (ER) | payer MEDICARE ==
[~2022-05-22] VITALS: Ht 162.6 cm; Wt 70.4 kg
[~2022-05-22 18:48] MED LIST changes: +NAPROXEN500 MG PO
[2022-05-22] MEDS ORDERED: NAPROXEN500 MG PO (20:28)
[2022-05-22] MEDS ORDERED: PAXLOVID PO (20:28)
[2022-05-22 20:46] VITALS: BP 123/60
== END 2022-05-22 21:26 | disposition home or self-care (01) ==
LOC: ED 18:48
DX: U07.1 COVID-19 (principal); R52 Pain, unspecified; J02.9 Acute pharyngitis, unspecified; R50.9 Fever, unspecified; M54.50 Low back pain, unspecified; G89.29 Other chronic pain; F17.200 Nicotine dependence, unspecified, uncomplicated

== ENCOUNTER 2022-05-24 16:13 | Emergency (ER) | payer MEDICARE ==
[~2022-05-24] VITALS: Ht 162.6 cm; Wt 86.0 kg
[2022-05-24] VITALS (8 sets, daily range): BP systolic 107–156; BP diastolic 59–114
[~2022-05-24 16:13] MED LIST changes: +PAXLOVID PO
[2022-05-24 18:07] LABS: HEMATOCRIT 37.5 % (37.0-47.0); HEMOGLOBIN 11.9 g/dl (12.0-16.0); IMMATURE GRANULOCYTES 0.2 % (0.0-5.0); MEAN CELL VOLUME 102.5 fL CALC (80.0-100.0); MEAN CORPUSCULAR HGB 32.5 pG CALC (26.0-32.0); MEAN CORPUSCULAR HGB CONC 31.7 g/dL CAL (32.0-36.0); NEUT# 5.32 thou/uL (2.00-7.15); RED BLOOD COUNT 3.66 mill/uL (4.20-5.60); RED CELL DISTRI WIDTH 14.3 % (11.5-15.5)
[2022-05-24 18:19] LABS: ALBUMIN 4.1 g/dL (3.2-5.0); ALKALINE PHOSPHATASE 121 u/l (38-126); AMYLASE 121 u/l (30-110); ANION GAP 17 (6-22 (CALC)); BUN 23 mg/dL (7-17); BUN/CREATININE RATIO 23 (12-20 (CALC)); CARBON DIOXIDE 20 mmol/l (22-30); CHLORIDE 110 mmol/l (95-108); GFR FOR AFR.AMER. > 60 ML/MIN (>=60 (CALC)); GFR OTHER RACES 58 ML/MIN (>=60 (CALC)); LIPASE 300 u/l (23-300); POTASSIUM 3.7 mmol/l (3.5-5.1); SGOT/AST 29 u/l (14-36); SODIUM 143 mmol/l (137-146)
[2022-05-24 18:20] LABS: BILIRUBIN, TOTAL 0.6 mg/dL (0.0-1.4)
[2022-05-24 18:31] LABS: MYOGLOBIN 48 ng/mL (0 - 62)
== END 2022-05-24 22:50 | disposition home or self-care (01) ==
LOC: ED 16:13
PROVIDERS: Emergency Medicine
DX: U07.1 COVID-19 (principal); R10.9 Unspecified abdominal pain; R19.7 Diarrhea, unspecified; F32.A Depression, unspecified; F17.210 Nicotine dependence, cigarettes, uncomplicated; Z20.822 Contact with and (suspected) exposure to COVID-19
CPT/HCPCS: Q9967

== ENCOUNTER 2022-06-04 16:56 | Emergency (ER) | payer MEDICARE ==
[~2022-06-04] VITALS: Ht 162.6 cm; Wt 82.0 kg
[2022-06-04 17:03] VITALS: BP 155/77
[2022-06-04] MEDS ORDERED: PERCOCET 10/31 COMBO PO ×2 (17:18→17:37)
[2022-06-04] MEDS ORDERED: MORPHINE SUL30 M3 PO (17:24)
[2022-06-04] MEDS ORDERED: LYRICA50 MG PO (17:24)
[2022-06-04] MEDS ORDERED: ZOFRAN4 MG/TAB PO (17:38)
[2022-06-04 17:40] VITALS: BP 120/67
== END 2022-06-04 17:48 | disposition home or self-care (01) ==
LOC: ED 16:56
DX: G89.29 Other chronic pain (principal); M54.9 Dorsalgia, unspecified; M79.7 Fibromyalgia; F32.A Depression, unspecified; F17.210 Nicotine dependence, cigarettes, uncomplicated; Z79.891 Long term (current) use of opiate analgesic

== ENCOUNTER 2022-11-11 10:34 | Emergency (ER) | payer MEDICARE ==
[~2022-11-11] VITALS: Ht 162.6 cm; Wt 75.0 kg
[~2022-11-11 10:34] MED LIST changes: +LYRICA50 MG PO; +MORPHINE SUL30 M3 PO; +ZOFRAN4 MG/TAB PO
[2022-11-11] MEDS ORDERED: MEDDOSEPAK PO ×2 (13:03→13:07)
[2022-11-11 13:27] VITALS: BP 165/78
== END 2022-11-11 13:43 | disposition home or self-care (01) ==
LOC: ED 10:34
DX: S09.90XA Unspecified injury of head, initial encounter (principal); S40.012A Contusion of left shoulder, initial encounter; M54.2 Cervicalgia; M79.7 Fibromyalgia; F32.A Depression, unspecified; F17.200 Nicotine dependence, unspecified, uncomplicated; W01.198A Fall on same level from slipping, tripping and stumbling with subsequent striking against other object, initial encounter; Y92.002 Bathroom of unspecified non-institutional (private) residence as the place of occurrence of the external cause; Z98.1 Arthrodesis status

== ENCOUNTER 2022-12-22 10:35 | Day surgery (SDC) | payer MEDICARE ==
[2022-12-22 14:06] VITALS: BP 122/98
== END 2022-12-22 14:27 | disposition home or self-care (01) ==
LOC: ENDO 10:35 → ORM 15:10
PROVIDERS: ATTEND Internal Medicine Gastroenterology
PROC: 0DJD8ZZ Inspection of Lower Intestinal Tract, Via Natural or Artificial Opening Endoscopic (ICD-10-PCS; principal; 2022-12-22)
DX: R10.32 Left lower quadrant pain (principal); K64.8 Other hemorrhoids

== ENCOUNTER 2022-12-28 17:49 | Emergency (ER) | payer MEDICARE ==
[~2022-12-28] VITALS: Ht 162.6 cm; Wt 77.0 kg
[2022-12-28] MEDS ORDERED: CYCLOBENZAPRINE10 MG PO (19:35)
[2022-12-28] MEDS ORDERED: VOLTAREN75 MG PO (19:35)
[2022-12-28 20:01] VITALS: BP 111/64
== END 2022-12-28 20:02 | disposition home or self-care (01) ==
LOC: ED 17:49
DX: S13.9XXA Sprain of joints and ligaments of unspecified parts of neck, initial encounter (principal); S33.5XXA Sprain of ligaments of lumbar spine, initial encounter; S80.211A Abrasion, right knee, initial encounter; F32.A Depression, unspecified; M79.7 Fibromyalgia; F17.210 Nicotine dependence, cigarettes, uncomplicated; W01.0XXA Fall on same level from slipping, tripping and stumbling without subsequent striking against object, initial encounter; Y92.009 Unspecified place in unspecified non-institutional (private) residence as the place of occurrence of the external cause

== ENCOUNTER 2023-01-22 15:43 | Observation (INO) | payer MEDICARE ==
[~2023-01-22] VITALS: Ht 162.6 cm; Wt 80.6 kg
[~2023-01-22 15:43] MED LIST changes: +MS CONTIN15 M1 PO; +VOLTAREN75 MG PO; +ZITHROMAX Z-PA250 MG PO
[2023-01-22 16:45] LABS: BASO% 0.7 % (0-3); EOS% 1.4 % (0-8); HEMATOCRIT 33.1 % (37.0-47.0); IMMATURE GRANULOCYTES 0.5 % (0.0-5.0); LYMPH% 28.2 % (15-41); MEAN CORPUSCULAR HGB 30.1 pG CALC (26.0-32.0); MEAN CORPUSCULAR HGB CONC 29.3 g/dL CAL (32.0-36.0); MONO% 6.8 % (2-13); NEUT# 3.65 thou/uL (2.00-7.15); NEUT% 62.4 % (42-76); RED BLOOD COUNT 3.22 mill/uL (4.20-5.60)
[2023-01-22 16:47] LABS: ALBUMIN 3.6 g/dL (3.2-5.0); ALKALINE PHOSPHATASE 84 u/l (38-126); BUN 11 mg/dL (7-17); BUN/CREATININE RATIO 17 (12-20 (CALC)); CHLORIDE 111 mmol/l (95-108); CREATININE 0.6 mg/dL (0.5-1.0); GFR FOR AFR.AMER. > 60 ML/MIN (>=60 (CALC)); GFR OTHER RACES > 60 ML/MIN (>=60 (CALC)); POTASSIUM 3.7 mmol/l (3.5-5.1); SGOT/AST 18 u/l (14-36); SODIUM 144 mmol/l (137-146)
[2023-01-22 16:48] LABS: ANION GAP 8 (6-22 (CALC)); CARBON DIOXIDE 29 mmol/l (22-30); TOTAL PROTEIN 6.1 g/dL (6.3-8.2)
[2023-01-22 16:52] LABS: HEMOGLOBIN 9.7 g/dl (12.0-16.0); MEAN CELL VOLUME 102.8 fL CALC (80.0-100.0)
[2023-01-22 18:08] LABS: URINE BILIRUBIN - DIPSTICK NEGATIVE (NEGATIVE); URINE BLOOD DIPSTICK NEGATIVE (NEGATIVE); URINE COLOR YELLOW; URINE GLUCOSE - DIPSTICK NEGATIVE (NEGATIVE); URINE KETONE NEGATIVE (NEGATIVE); URINE LEUK ESTERASE NEGATIVE (NEGATIVE); URINE PROTEIN - DIPSTICK NEGATIVE (NEG-TRACE); URINE SPECIFIC GRAVITY 1.015; URINE UROBILINOGEN - DIPSTICK 0.2 E.U./dL (0.2)
[2023-01-22 18:14] LABS: URINE NITRITE - DIPSTICK POSITIVE (Negative)
[2023-01-22 18:16] LABS: URINE BACTERIA MANY hpf; URINE RBC 0-2 RBC/hpf (0-5); URINE SQUAMOUS EPITHELIAL CELL FEW EPI/hpf (0-FEW); URINE WBC 0-2 WBC/hpf (0-5)
[2023-01-22 20:11] VITALS: BP 140/69
[2023-01-22] MEDS ORDERED: PROTONIX40 M2 PO (20:52)
[2023-01-22] MEDS ORDERED: PERCOCET 10/31 COMBO PO (20:54)
[2023-01-22 23:40] VITALS: BP 166/80
[2023-01-23 02:00] VITALS: BP 152/74
[2023-01-23 04:00] VITALS: BP 143/78
[2023-01-23 04:07] VITALS: BP 143/78
[2023-01-23 06:23] LABS: BASO% 0.8 % (0-3); EOS% 1.2 % (0-8); HEMATOCRIT 33.6 % (37.0-47.0); HEMOGLOBIN 9.9 g/dl (12.0-16.0); IMMATURE GRANULOCYTES 0.6 % (0.0-5.0); LYMPH% 36.4 % (15-41); MEAN CELL VOLUME 103.1 fL CALC (80.0-100.0); MEAN CORPUSCULAR HGB 30.4 pG CALC (26.0-32.0); MEAN CORPUSCULAR HGB CONC 29.5 g/dL CAL (32.0-36.0); MONO% 9.1 % (2-13); NEUT# 2.49 thou/uL (2.00-7.15); NEUT% 51.9 % (42-76); RED BLOOD COUNT 3.26 mill/uL (4.20-5.60); RED CELL DISTRI WIDTH 14.8 % (11.5-15.5)
[2023-01-23 06:45] VITALS: BP 114/56
[2023-01-23 06:51] LABS: ALBUMIN 3.6 g/dL (3.2-5.0); ALKALINE PHOSPHATASE 89 u/l (38-126); ANION GAP 9 (6-22 (CALC)); BUN 9 mg/dL (7-17); BUN/CREATININE RATIO 15 (12-20 (CALC)); CARBON DIOXIDE 31 mmol/l (22-30); CHLORIDE 107 mmol/l (95-108); CHOLESTEROL HDL RATIO 4.2 (<4.4 (CALC)); CREATININE 0.6 mg/dL (0.5-1.0); GFR FOR AFR.AMER. > 60 ML/MIN (>=60 (CALC)); GFR OTHER RACES > 60 ML/MIN (>=60 (CALC)); MAGNESIUM 2.1 mg/dL (1.6-2.3); POTASSIUM 3.9 mmol/l (3.5-5.1); SODIUM 143 mmol/l (137-146); TOTAL PROTEIN 6.1 g/dL (6.3-8.2)
[2023-01-23 06:54] LABS: SGOT/AST 32 u/l (14-36)
[2023-01-23 07:22] LABS: TSH, 3RD GENERATION 0.67 uIU/mL (0.47 - 4.68)
[2023-01-23 10:42] VITALS: BP 149/83
[2023-01-23] MEDS ORDERED: WELLBUTRIN XL300 MG PO (12:32)
[2023-01-23] MEDS ORDERED: CYMBALTA60 MG PO (12:32)
[2023-01-23] MEDS ORDERED: CYMBALTA30 MG PO (12:32)
[2023-01-23] MEDS ORDERED: BUPROPION HCL150 MG PO (12:33)
[2023-01-23] MEDS ORDERED: ZOFRAN4 MG/TAB PO (12:34)
[2023-01-23] MEDS ORDERED: KEFLEX500 MG PO (12:51)
== END 2023-01-23 14:14 | disposition home or self-care (01) ==
LOC: ED 15:43 → ED-I 18:00 → ED 18:17 → MS2 18:18
PROVIDERS: Family Medicine; Nurse Practitioner Family; ADMIT Internal Medicine; ATTEND Internal Medicine
DX: R07.9 Chest pain, unspecified (principal); M54.9 Dorsalgia, unspecified; G89.29 Other chronic pain; M79.7 Fibromyalgia; F41.9 Anxiety disorder, unspecified; F32.A Depression, unspecified; E78.5 Hyperlipidemia, unspecified; K21.9 Gastro-esophageal reflux disease without esophagitis; F17.200 Nicotine dependence, unspecified, uncomplicated; G43.909 Migraine, unspecified, not intractable, without status migrainosus; R82.71 Bacteriuria
CPT/HCPCS: J1650

== ENCOUNTER 2023-01-26 13:33 | Emergency (ER) | payer MEDICARE ==
[2023-01-26] VITALS (29 sets, daily range): BP systolic 74–137; BP diastolic 35–79
[~2023-01-26] VITALS: Ht 162.6 cm; Wt 68.0 kg
[~2023-01-26 13:33] MED LIST changes: +BUPROPION HCL150 MG PO; +CYMBALTA30 MG PO; +CYMBALTA60 MG PO; +KEFLEX500 MG PO; +PROTONIX40 M2 PO; +WELLBUTRIN XL300 MG PO
[2023-01-26 14:11] LABS: BASO% 0.4 % (0-3); EOS% 0.4 % (0-8); HEMATOCRIT 38.2 % (37.0-47.0); HEMOGLOBIN 11.2 g/dl (12.0-16.0); IMMATURE GRANULOCYTES 0.2 % (0.0-5.0); LYMPH% 7.7 % (15-41); MEAN CELL VOLUME 101.3 fL CALC (80.0-100.0); MEAN CORPUSCULAR HGB 29.7 pG CALC (26.0-32.0); MEAN CORPUSCULAR HGB CONC 29.3 g/dL CAL (32.0-36.0); MONO% 5.1 % (2-13); NEUT# 9.68 thou/uL (2.00-7.15); NEUT% 86.2 % (42-76); RED BLOOD COUNT 3.77 mill/uL (4.20-5.60); RED CELL DISTRI WIDTH 14.9 % (11.5-15.5)
[2023-01-26 14:25] LABS: ALKALINE PHOSPHATASE 114 u/l (38-126); BUN 14 mg/dL (7-17); BUN/CREATININE RATIO 17 (12-20 (CALC)); CHLORIDE 109 mmol/l (95-108); CREATININE 0.8 mg/dL (0.5-1.0); GFR FOR AFR.AMER. > 60 ML/MIN (>=60 (CALC)); GFR OTHER RACES > 60 ML/MIN (>=60 (CALC)); SGOT/AST 30 u/l (14-36); SODIUM 141 mmol/l (137-146); TOTAL PROTEIN 6.7 g/dL (6.3-8.2)
[2023-01-26 14:26] LABS: ANION GAP 17 (6-22 (CALC)); BILIRUBIN, TOTAL 0.3 mg/dL (0.02-1.3); CARBON DIOXIDE 19 mmol/l (22-30)
[2023-01-26] MEDS ORDERED: FLORASTOR250 M1 PO (17:09)
[2023-01-26] MEDS ORDERED: ZOFRAN4 MG/TAB PO (17:09)
== END 2023-01-26 18:43 | disposition home or self-care (01) ==
LOC: ED 13:33
PROVIDERS: Nurse Practitioner
DX: R19.7 Diarrhea, unspecified (principal); R11.2 Nausea with vomiting, unspecified; I95.9 Hypotension, unspecified; M79.7 Fibromyalgia; F32.A Depression, unspecified; N39.0 Urinary tract infection, site not specified
CPT/HCPCS: Q9967; S0164

== ENCOUNTER 2023-03-14 16:41 | Emergency (ER) | payer MEDICARE ==
[~2023-03-14] VITALS: Ht 162.6 cm; Wt 99.8 kg
[2023-03-14] VITALS (8 sets, daily range): BP systolic 114–135; BP diastolic 56–74
[~2023-03-14 16:41] MED LIST changes: +FLORASTOR250 M1 PO
[2023-03-14 17:28] LABS: BASO% 0.5 % (0-3); HEMATOCRIT 32.9 % (37.0-47.0); IMMATURE GRANULOCYTES 0.7 % (0.0-5.0); MEAN CELL VOLUME 97.3 fL CALC (80.0-100.0); MEAN CORPUSCULAR HGB 29.6 pG CALC (26.0-32.0); MEAN CORPUSCULAR HGB CONC 30.4 g/dL CAL (32.0-36.0); MONO% 8.5 % (2-13); NEUT# 3.69 thou/uL (2.00-7.15); NEUT% 60.3 % (42-76); RED BLOOD COUNT 3.38 mill/uL (4.20-5.60); RED CELL DISTRI WIDTH 16.8 % (11.5-15.5)
[2023-03-14 17:39] LABS: ALBUMIN 3.8 g/dL (3.2-5.0); ALKALINE PHOSPHATASE 97 u/l (38-126); ANION GAP 12 (6-22 (CALC)); BILIRUBIN, TOTAL 0.4 mg/dL (0.02-1.3); BUN 11 mg/dL (7-17); BUN/CREATININE RATIO 15 (12-20 (CALC)); CARBON DIOXIDE 21 mmol/l (22-30); CHLORIDE 109 mmol/l (95-108); CREATININE 0.7 mg/dL (0.5-1.0); ETHYL ALCOHOL 0 mg/dl (0-30); GFR FOR AFR.AMER. > 60 ML/MIN (>=60 (CALC)); GFR OTHER RACES > 60 ML/MIN (>=60 (CALC)); POTASSIUM 3.4 mmol/l (3.5-5.1); SGOT/AST 39 u/l (14-36); SODIUM 139 mmol/l (137-146); TOTAL PROTEIN 6.8 g/dL (6.3-8.2)
[2023-03-14 19:24] LABS: URINE BILIRUBIN - DIPSTICK NEGATIVE (NEGATIVE); URINE BLOOD DIPSTICK NEGATIVE (NEGATIVE); URINE COLOR YELLOW; URINE GLUCOSE - DIPSTICK NEGATIVE (NEGATIVE); URINE KETONE NEGATIVE (NEGATIVE); URINE LEUK ESTERASE NEGATIVE (NEGATIVE); URINE PH 5.5 (4.5-8.0); URINE PROTEIN - DIPSTICK NEGATIVE (NEG-TRACE); URINE UROBILINOGEN - DIPSTICK 0.2 E.U./dL (0.2)
[2023-03-14 19:28] LABS: URINE NITRITE - DIPSTICK NEGATIVE (Negative)
== END 2023-03-14 19:50 | disposition home or self-care (01) ==
LOC: ED 16:41
PROVIDERS: Family Medicine
DX: R55 Syncope and collapse (principal); M79.7 Fibromyalgia; F32.A Depression, unspecified; Z79.891 Long term (current) use of opiate analgesic

== ENCOUNTER 2024-02-24 13:34 | Emergency (ER) | payer MEDICARE ==
[~2024-02-24] VITALS: Ht 162.6 cm; Wt 83.9 kg
[~2024-02-24 13:34] MED LIST changes: +ABILIFY10 MG PO; +CYCLOBENZAPRIN7.5 M1 PO; +FEROSUL325 MG; +FUROSEMIDE20 MG PO; +MECLIZINE25 M1 PO; +METHOCARBAMOL500 MG PO; +METRONIDAZOLE500 MG PO; +OXYCODONE5 M1 PO; +PLAVIX75 MG PO
[2024-02-24 13:40] VITALS: BP 166/106
[2024-02-24 13:45] VITALS: BP 173/80
[2024-02-24] MEDS ORDERED: KETOROLAC TROMETHAMINE 30 MG/ML SDV IV ONE (13:45)
[2024-02-24] MEDS ORDERED: DiphenhydrAMINE HCL 50 MG/ML SDV IV ONE (13:45)
[2024-02-24] MEDS ORDERED: METOCLOPRAMIDE HCL 10 MG/2 ML SDV IV ONE (13:45)
[2024-02-24] MEDS ORDERED: SODIUM CHLORIDE 0.9% 1,000 ML IV ONE (13:50)
[2024-02-24 13:58] LABS: BASO% 0.3 % (0-3); EOS% 1.7 % (0-8); HEMATOCRIT 37.7 % (37.0-47.0); HEMOGLOBIN 11.4 g/dl (12.0-16.0); IMMATURE GRANULOCYTES 0.3 % (0.0-5.0); LYMPH% 20.9 % (15-41); MEAN CELL VOLUME 95.9 fL CALC (80.0-100.0); MEAN CORPUSCULAR HGB CONC 30.2 g/dL CAL (32.0-36.0); MONO% 4.6 % (2-13); NEUT# 6.75 thou/uL (2.00-7.15); NEUT% 72.2 % (42-76); RED BLOOD COUNT 3.93 mill/uL (4.20-5.60); RED CELL DISTRI WIDTH 18.4 % (11.5-15.5)
[2024-02-24 14:01] VITALS: BP 141/63
[2024-02-24 14:15] VITALS: BP 127/90
[2024-02-24 14:25] LABS: BILIRUBIN, TOTAL 0.2 mg/dL (0.02-1.3); CREATININE 0.5 mg/dL (0.5-1.0); POTASSIUM 4.1 mmol/l (3.5-5.1)
[2024-02-24 14:40] LABS: ALBUMIN 4.1 g/dL (3.2-5.0); TOTAL PROTEIN 7.8 g/dL (6.3-8.2)
[2024-02-24] MEDS ORDERED: DEXAMETHASONE SOD. PHOSPHATE 10 MG/ML VIAL IV ONE (15:20)
[2024-02-24 16:16] VITALS: BP 127/90
== END 2024-02-24 16:17 | disposition left against medical advice (07) ==
LOC: ED 13:34
PROVIDERS: Nurse Practitioner
DX: G43.909 Migraine, unspecified, not intractable, without status migrainosus (principal); F17.200 Nicotine dependence, unspecified, uncomplicated; Z53.29 Procedure and treatment not carried out because of patient's decision for other reasons

== ENCOUNTER 2024-06-01 12:52 | Emergency (ER) | payer MEDICARE ==
[2024-06-01] VITALS (7 sets, daily range): BP systolic 135–173; BP diastolic 61–95
[~2024-06-01] VITALS: Ht 162.6 cm; Wt 95.0 kg
[~2024-06-01 12:52] MED LIST changes: +ABILIFY5 MG PO; +CRESTOR10 MG PO; +LYRICA200 MG PO; +LYRICA225 MG PO; +[UNRECOGNIZED DRUG - OTHER] PO
[2024-06-01] MEDS ORDERED: PROMETHAZINE HCL 25 MG/ML AMP IM ONE (13:10)
[2024-06-01] MEDS ORDERED: HYDROmorphone HCL 2 MG/AMP IM ONE (13:10)
[2024-06-01] MEDS ORDERED: TRAMADOL HYDROC50 M1 PO (15:05)
== END 2024-06-01 15:31 | disposition home or self-care (01) ==
LOC: ED 12:52
DX: S16.1XXA Strain of muscle, fascia and tendon at neck level, initial encounter (principal); S80.02XA Contusion of left knee, initial encounter; S80.01XA Contusion of right knee, initial encounter; S50.311A Abrasion of right elbow, initial encounter; F32.A Depression, unspecified; F41.9 Anxiety disorder, unspecified; F17.200 Nicotine dependence, unspecified, uncomplicated; W01.0XXA Fall on same level from slipping, tripping and stumbling without subsequent striking against object, initial encounter; Y92.233 Cafeteria of hospital as the place of occurrence of the external cause

== ENCOUNTER 2024-08-27 11:31 | Emergency (ER) | payer MEDICARE ==
[~2024-08-27] VITALS: Ht 162.6 cm; Wt 95.0 kg
[~2024-08-27 11:31] MED LIST changes: +TRAMADOL HYDROC50 M1 PO
[2024-08-27] MEDS ORDERED: KETOROLAC TROMETHAMINE 30 MG/ML SDV IM ONE (13:20)
[2024-08-27 13:21] VITALS: BP 134/54
[2024-08-27] MEDS ORDERED: HYDROcodone 5 MG/Acetaminophen 325 MG/COMBO PO ONE (13:25)
[2024-08-27 13:30] VITALS: BP 143/79
[2024-08-27] MEDS ORDERED: LORTAB 5/3255 MG PO (13:37)
[2024-08-27 14:00] VITALS: BP 133/76
[2024-08-27 14:01] VITALS: BP 133/76
== END 2024-08-27 14:05 | disposition home or self-care (01) ==
LOC: ED 11:31
PROC: 0SSPXZZ Reposition Right Toe Phalangeal Joint, External Approach (ICD-10-PCS; principal; 2024-08-27)
DX: S92.521A Displaced fracture of middle phalanx of right lesser toe(s), initial encounter for closed fracture (principal); G62.9 Polyneuropathy, unspecified; F17.200 Nicotine dependence, unspecified, uncomplicated; W22.8XXA Striking against or struck by other objects, initial encounter